=== PATIENT | male | born 1960 | race Caucasian/White ===

== ENCOUNTER 2017-02-28 16:45 | Emergency (ER) | payer OTHER ==
[~2017-02-28 16:45] MED LIST: NORCO 5/325 TAB1 TAB PO
[2017-02-28 17:02] LABS: URINE BILIRUBIN NEGATIVE (NEG); URINE BLOOD MODERATE (NEG); URINE GLUCOSE (UA) NEGATIVE (NEG); URINE KETONE NEGATIVE (NEG); URINE LEUKOCYTE ESTERASE POSITIVE (NEG); URINE NITRITE NEGATIVE (NEG); URINE PROTEIN SMALL (NEG); URINE SPECIFIC GRAVITY 1.025 (1.003-1.030)
[2017-02-28 17:03] LABS: URINE APPEARANCE CLOUDY; URINE COLOR YELLOW
[2017-02-28 17:11] LABS: URINE EPITHELIAL CELLS 0 /[HPF] (0-10)
[2017-02-28] MEDS ORDERED: PRAVASTATIN SOD10 M1 PO (19:24)
[2017-02-28 20:17] LABS: BASO % 0.6 % (0-2); EOS % 2.5 % (0-7); EOSINOPHIL ABSOLUTE COUNT 0.2 tho/cmm (0.0-0.7); HCT-HEMATOCRIT 44.5 % (36.0-53.5); HGB-HEMOGLOBIN 15.3 gm/dl (13.5-17.0); IMMATURE GRANULOCYTES ABSOLUTE 0.04 tho/cmm (0-0.03); IMMATURE GRANULOCYTES PERCENT 0.6 % (0-0.3); LYMPH % 32.3 % (20-45); LYMPH ABSOLUTE COUNT 2.4 tho/cmm (0.8-4.5); MCH (MEAN CORPUSCULAR HGB) 32.1 pg (28.0-32.0); MCHC MEAN CORPUSCULAR HGB CONC 34.4 % (32.0-36.0); MCV (MEAN CELL VOLUME) 93.3 fl (82.0-96.0); MONO % 9.2 % (0-12); MONOCYTE ABSOLUTE COUNT 0.7 tho/cmm (0.0-1.2); NEUTROPHILS % 54.8 % (40-80); PLATELET COUNT 171 tho/cmm (150-450); RED BLOOD COUNT 4.77 mil/cmm (4.40-5.70); RED CELL DISTRIBUTION WIDTH 13.2 % (12.4-16.4); WHITE BLOOD COUNT 7.3 tho/cmm (4.0-10.0)
[2017-02-28 20:36] LABS: ALB/GLOB RATIO 1.2 (0.8-2.0); ALKALINE PHOSPHATASE 94 U/L (33-138); ALT/SGPT 27 U/L (12-78); ANION GAP 13 mmol/L (0-20); AST/SGOT 23 U/L (10-40); BILIRUBIN,TOTAL 0.4 mg/dl (0.0-1.5); BLOOD UREA NITROGEN 13 mg/dl (6-24); CALCIUM 8.6 mg/dl (8.5-10.5); CARBON DIOXIDE-VENOUS 26 mmol/L (22-32); CHLORIDE 105 mmol/l (96-110); CREATININE 0.91 mg/dl (0.60-1.30); GLUCOSE 99 mg/dL (70-110); POTASSIUM 3.7 mmol/L (3.7-5.1); SODIUM 140 mmol/L (135-145); eGFR VALUE FOR BLACK >90 mL/Min
[2017-02-28] MEDS ORDERED: PERCOCET 5-3251 EACH PO (21:59)
[2017-02-28] MEDS ORDERED: ZOFRAN4 M2 PO (21:59)
[2017-03-06] MEDS ORDERED: NORCO 5-325 TA1 EACH PO (13:29)
[2017-03-06] MEDS ORDERED: ZOFRAN4 M2 PO (13:31)
== END 2017-02-28 22:10 ==
LOC: EDMED 16:45
PROVIDERS: Emergency Medicine; Family Medicine
DX: N13.2 Hydronephrosis with renal and ureteral calculous obstruction (principal); E78.5 Hyperlipidemia, unspecified; Z87.442 Personal history of urinary calculi; Z87.891 Personal history of nicotine dependence
CPT/HCPCS: J2270; J2405; J7030

== ENCOUNTER 2017-03-08 09:55 | Day surgery (SDC) | payer OTHER ==
[~2017-03-08 09:55] MED LIST changes: +NORCO 5-325 TA1 EACH PO; +PERCOCET 5-3251 EACH PO; +PRAVASTATIN SOD10 M1 PO; +ZOFRAN4 M2 PO
== END 2017-03-08 16:30 ==
LOC: SRG 09:55 → SHSB 10:00 → ORW 12:05 → PACU 13:07 → SHSB 14:14
PROC: 0TF3XZZ Fragmentation in Right Kidney Pelvis, External Approach (ICD-10-PCS; principal; 2017-03-08)
PROC: 0TP98DZ Removal of Intraluminal Device from Ureter, Via Natural or Artificial Opening Endoscopic (ICD-10-PCS; 2017-03-08)
DX: N20.0 Calculus of kidney (principal); E78.00 Pure hypercholesterolemia, unspecified; Z87.891 Personal history of nicotine dependence; Z88.8 Allergy status to other drugs, medicaments and biological substances; Z98.890 Other specified postprocedural states
CPT/HCPCS: J1170; J1956; J3010